=== PATIENT | male | born 1960 | race Caucasian/White ===

== ENCOUNTER 2020-07-22 13:48 | Inpatient (IN) | payer OTHER ==
[~2020-07-22] VITALS: Ht 175.3 cm; Wt 81.6 kg
[2020-07-22 13:50] VITALS: Ht 175.3 cm; Wt 81.6 kg
--- NOTE | 2020-07-22 14:05 | NUR ---
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
[2020-07-22 14:18] LABS: microscopic required? NO
[2020-07-22 14:45] LABS: CALCIUM 9.2 mg/dL (8.5-10.1); CHLORIDE SERUM 104 mmol/L (98-107); GFR1 > 60 mL/min; GLUCOSE SERUM 110 mg/dL (74-106); POTASSIUM SERUM 3.9 mmol/L (3.5-5.1); SODIUM SERUM 139 mmol/L (136-145); T3 TOTAL 1.37 ng/mL
[2020-07-22 14:49] LABS: ALKALINE PHOSPHATASE 88 U/L (46-116); ALT/SGPT 24 U/L (16-63); AST/SGOT 19 U/L (15-37); BILIRUBIN TOTAL 0.3 mg/dL (0.20-1.00); CHOLESTEROL 172 mg/dL (<200); CHOLESTEROL/HDL RATIO 3.2; FREE T4 1.05 ng/dL (0.76-1.46); FREE THYROXINE INDEX 2.9 ug/dL (1.4-4.5); HDL CHOLESTEROL 54 mg/dL (40-60); LIPASE 76 IU/L (73-393); T4(THYROXINE) 8.5 ug/dL (4.7-13.3); TOTAL PROTEIN, SERUM 7.2 g/dL (6.4-8.2); TRIGLYCERIDES 180 mg/dL (<150)
--- NOTE | 2020-07-22 14:55 | NUR ---
RETURNS FROM CT VIA [facility]. AWAKE ALERT. SKIN DRY.
[2020-07-22 15:04] LABS: BASOPHIL % 0.7 % (0.2-1.5); PLATELET COUNT 228 x10^3mcL (152-348)
[2020-07-22 15:06] LABS: RED CELL DISTRIBUTION WIDTH 17.5 % (12.1-16.2)
[2020-07-22 15:19] LABS: urine erythrocyte NEGATIVE (NEGATIVE)
--- NOTE | 2020-07-22 16:15 | NUR ---
AWAKE, ALERT. NO GRIMACING. VITAL SIGNS STABLE.
[2020-07-22] MEDS ORDERED: PRILOSEC OTC20 M1 PO (16:23)
[2020-07-22] MEDS ORDERED: SIMVASTATIN20 M1 PO (16:23)
[2020-07-22 17:53] LABS: MAGNESIUM 2.1 mg/dL (1.8-2.4)
--- NOTE | 2020-07-22 17:56 | NUR ---
CALLED AND GAVE REPORT TO CARMEN, ALL QUESTIONS ADDRESSED.
[2020-07-22 18:32] VITALS: BP 163/91
--- NOTE | 2020-07-22 19:11 | NUR ---
PATIENT CAME UP FROM ED AROUND 1805 FOR CHEST PAIN. A/O X 4. ALF GUARDS AT BEDSIDE. ORIENTED TO UNIT AND PLAN OF CARE. BP HIGHER THIS TIME , PATIENT ASYMPTOMATIC AND NO COMPLAINTS PRESENTED. CHEST PAIN DOWN TO 2/10. CARE ENDORSED TO CONFIGURATION MANAGEMENT SPECIALIST.
--- NOTE | 2020-07-22 19:30 | NUR ---
RECEIVED FROM DAY RN. A/O X 4. AWAKE IN BED. TWO CIM GUARDS AT BEDSIDE. DENIES CHEST PAIN OR SOB AT THIS TIME. NSR ON TELE 2. LUNG SOUNDS CLEAR ON RA. PULSES MODERATE, NO EDEMA. BOWEL SOUNDS POSITIVE. VOIDS VIA URINAL. AMBUALTORY. SKIN INTACT. DENIES ANY KIND OF PAIN AT THIS TIME. IV TO L FA SALINE LOCKED. CALM. BED LOCKED IN LOWEST POSITION, CALL LIGHT WITHIN REACH.
[2020-07-22 20:06] VITALS: BP 131/77
[2020-07-22 20:32] LABS: rbc morphology (normal/abnorm) ABNORMAL (NORMAL)
--- NOTE | 2020-07-22 23:17 | NUR ---
PT AWAKE AT THIS TIME, DENIES CHEST PAIN OR SOB. PATIENT WANTED TO TALK TO THE DOCTOR AND I TOLD PT. THAT THE DOCTOR WOULD ROUND TOMORROW MORNING. GAVE UPDATE TO PATIENT REGARDING TROPONIN RESULTS. PT VERBALIZED NO FURTHER CONCERNS OR NEEDS AT THIS TIME. BED IN LOWEST POSITION. CALL LIGHT WITHIN REACH.
--- NOTE | 2020-07-23 01:54 | NUR ---
PT STATES THAT THEY HAVE DIFFICULTY SLEEPING. ADMINISTERED AMBIEN PRN. CALL LIGHT WITHIN REACH. BED IN LOWEST POSITION.
[2020-07-23 05:10] VITALS: BP 126/76
--- NOTE | 2020-07-23 06:08 | NUR ---
PT AWAKE. A/O X 4. DENIES CHEST PAIN OR SOB AT THIS TIME. BREATHING E/U ON RA. NO CRITICAL CHANGES. DOES NOT HAVE ANY REQUESTS OR CONCERNS AT THIS TIME. ALL PROTOCOLS IN PLACE. CALL LIGHT WITHIN REACH. BED IN LOWEST POSITION. WILL ENDORSE CARE TO DAY RN.
[2020-07-23 06:49] LABS: BASOPHIL % 0.5 % (0.2-1.5); PLATELET COUNT 213 x10^3mcL (152-348)
[2020-07-23 07:10] LABS: CALCIUM 8.8 mg/dL (8.5-10.1); CHLORIDE SERUM 104 mmol/L (98-107); GFR1 > 60 mL/min; GLUCOSE SERUM 97 mg/dL (74-106); POTASSIUM SERUM 3.8 mmol/L (3.5-5.1); SODIUM SERUM 141 mmol/L (136-145)
[2020-07-23 07:33] LABS: RED CELL DISTRIBUTION WIDTH 17.7 % (12.1-16.2)
[2020-07-23 07:39] LABS: rbc morphology (normal/abnorm) NORMAL (NORMAL)
[2020-07-23 08:45] VITALS: BP 118/71
[2020-07-23 12:25] VITALS: BP 139/81
[2020-07-23 15:51] VITALS: BP 123/76
--- NOTE | 2020-07-23 19:31 | NUR ---
RECEIVED REPORT FROM DAY RN. PT READY TO BE DISCHARGED. REMOVED IV AND ARMBAND. ALL BELONGINGS WITH PATIENT. ACCOMPANIED BY 4 CIM OFFICERS.
== END 2020-07-23 19:31 | DRG 313 ==
LOC: ED 13:48 → DU 16:24
PROVIDERS: Specialist; ADMIT Internal Medicine; ATTEND Internal Medicine
DX: R07.89 Other chest pain (principal); I25.10 Atherosclerotic heart disease of native coronary artery without angina pectoris; I10 Essential (primary) hypertension; R09.1 Pleurisy; K27.9 Peptic ulcer, site unspecified, unspecified as acute or chronic, without hemorrhage or perforation; E78.5 Hyperlipidemia, unspecified; J44.9 Chronic obstructive pulmonary disease, unspecified; K21.9 Gastro-esophageal reflux disease without esophagitis; Z20.822 Contact with and (suspected) exposure to COVID-19; G62.9 Polyneuropathy, unspecified; D64.9 Anemia, unspecified; Z79.899 Other long term (current) drug therapy; Z85.048 Personal history of other malignant neoplasm of rectum, rectosigmoid junction, and anus; I25.2 Old myocardial infarction
CPT/HCPCS: 83880; 84439; G0378; J7030; Q9967; U0003